=== PATIENT | female | born 1980 | race Two or more races ===

== ENCOUNTER 2017-08-16 02:26 | Emergency (ER) | payer SELFPAY ==
[~2017-08-16] VITALS: Ht 157.5 cm; Wt 74.8 kg
--- NOTE | 2017-08-16 02:50 | NUR ---
to bed 4 bib paramedics c/o etoh. pt aaox4 no acute distress noted, resp even and unlabored. pt ambulatory to the [facility]. er md at bedside to eval pt with orders received.
--- NOTE | 2017-08-16 06:34 | NUR ---
Patient discharged to home in stable condition. Written and verbal after care instructions given. Patient verbalizes understanding of instruction. ambulatory with a steady gait noted. advice pt not to drive or operate any machinery due to pt was given narcotic medicine. pt verbalize understanding.
[2017-08-16 06:37] VITALS: BP 134/62
== END 2017-08-16 06:38 | disposition home or self-care (01) ==
LOC: ER 02:30
DX: F10.129 Alcohol abuse with intoxication, unspecified (principal)
CPT/HCPCS: 82962; 99283; A4606; Z7610

== ENCOUNTER 2023-07-21 16:13 | Emergency (ER) | payer MEDICAID ==
[~2023-07-21] VITALS: Ht 165.1 cm; Wt 74.8 kg
[2023-07-21 17:31] VITALS: BP 148/56; TEMP 98; O2SAT 98
== END 2023-07-21 18:30 | disposition home or self-care (01) ==
LOC: ER 16:22
DX: T16.1XXA Foreign body in right ear, initial encounter (principal); Z85.3 Personal history of malignant neoplasm of breast; W44.8XXA Other foreign body entering into or through a natural orifice, initial encounter; Y93.89 Activity, other specified; Y92.89 Other specified places as the place of occurrence of the external cause; Y99.8 Other external cause status